=== PATIENT | male | born 1995 | race Two or more races ===

== ENCOUNTER 2018-05-09 17:34 | Emergency (ER) | payer OTHER ==
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
[2018-05-09] MEDS ORDERED: IOPAMIDOL (ISOVUE-300) 100 ML BTL ONE (18:36)
[2018-05-09 18:39] LABS: PLATELET COUNT 285 10^3/uL (150-400)
[2018-05-09 18:50] LABS: INR 1.02 (0.83-1.16); PROTIME(PATIENT) 13.6 SEC (12.0-15.0)
[2018-05-09] MEDS ORDERED: HYDROCOD/APAP 5/325 PREPACK#6 BTL TAKEHOME ONE (20:06)
[2018-05-09 20:31] VITALS: BP 145/72
== END 2018-05-09 20:31 | disposition home or self-care (01) ==
DX: S20.211A Contusion of right front wall of thorax, initial encounter (principal); V44.5XXA Car driver injured in collision with heavy transport vehicle or bus in traffic accident, initial encounter; Y92.413 State road as the place of occurrence of the external cause
CPT/HCPCS: 82435-PO; 82565-PO; 82947-PO; 84132-PO; 84295-PO; 84520-PO; 85014-PO; 96374; J2270; Q9967